=== PATIENT | female | born 1970 | race Caucasian/White ===

== ENCOUNTER → 2017-10-28 15:40 | Outpatient (CLI) | payer BC, SELFPAY ==
[2017-10-28 17:30] LABS: Absolute Lymphocyte Count 2.03 X10^3/ul (0.83-4.51); Absolute Neutrophil Count 4.6 X10^3/uL (2.0-7.7); Basophil# 0.04 X10^3/uL; Basophil% 0.5 % (0-1); Eosinophil# 0.08 X10^3/uL; Eosinophils% 1.1 % (0-5); Hematocrit 37.8 % (37-47); Hemoglobin 12.3 g/dl (12.0-15.0); Lymphocyte # 2.03 X10^3/ul (4.0); Lymphocyte % 27.5 % (19-41); Mean Corp Hgb Conc 32.5 g/gl (32-36); Mean Corpuscular Hgb 29.8 pg (27.0-32.0); Mean Corpuscular Volume 91.5 fL (81-99); Mean Platelet Vol. 10.5 fl (6.2-12.0); Monocyte# 0.59 X10^3/uL; Neutrophil # 4.63 X10^3/uL (2.7-7.7); Neutrophil % 62.8 % (47-70); Platelet Count 287 K/mm3 (150-450); RBC Distribution Width CV 13.2 % (11.6-14.6); RBC Distribution Width SD 43.9 fl (35.1-43.9); Red Blood Count 4.13 M/mm3 (4.2-5.4); White Blood Count 7.4 K/mm3 (4.4-11.0)
[2017-10-28 17:33] LABS: POSITIVE COUNT NO; POSITIVE DIFFERENTIAL NO; POSITIVE MORPHOLOGY NO
== END ==
PROVIDERS: Family Provider Family Medicine; PCP Family Medicine; Visit Provider Internal Medicine Gastroenterology
DX: R10.9 Unspecified abdominal pain (principal); K92.1 Melena
CPT/HCPCS: 36415; 85025

== ENCOUNTER → 2017-12-26 15:34 | Outpatient (CLI) | payer BC, SELFPAY ==
--- NOTE | 2017-12-26 15:35 | US_ITS ---
STUDY: ULTRASOUND OF THE FEMALE PELVIS - COMPLETE REASON FOR EXAM: Female, 47 years old. Right upper quadrant pain. TECHNIQUE: Transvaginal TECHNICAL QUALITY: Adequate. COMPARISON: None. FINDINGS: The uterus is absent consistent with previous hysterectomy. The right ovary is visualized. The right ovary measures 3.6 x 1.7 x 2.5 cm. There is a small cyst/prominent follicle in the right ovary measuring about 1.5 cm. There is no visualized right adnexal mass or complex lesion. There is normal arterial and normal venous vascularity. The left ovary is visualized. The left ovary measures 2.7 x 2 x 1.5 cm cm. There is no left ovarian cyst or ovarian mass. There is no visualized left adnexal mass or complex lesion. There is normal arterial and normal venous vascularity. There is no fluid in the cul-de-sac. US/Transvaginal Non- IMPRESSION: Status post hysterectomy. No pelvic mass is seen. Prominent follicles in the right ovary. Electronically Signed: Aleksandr Anthony MD at 2:17 EDT Tel , Service support ,
== END ==
PROVIDERS: Family Provider Family Medicine; PCP Family Medicine; Visit Provider Family Medicine
DX: R10.31 Right lower quadrant pain (principal)
CPT/HCPCS: 76830

== ENCOUNTER → 2018-06-20 16:03 | Outpatient (CLI) | payer BC, SELFPAY ==
[2018-06-20 18:04] LABS: AST(SGOT) 24 U/L (15-37); Alanine Aminotransfer ALT/SGPT 21 U/L (13-56); Cholesterol 178 mg/dL (200); High Density Lipoprotein 58 mg/dL; Triglycerides 55 mg/dL; Very Low Density Lipoprotein 11 mg/dL (5-40)
== END ==
PROVIDERS: Family Provider Family Medicine; PCP Family Medicine; Visit Provider Family Medicine
DX: E78.00 Pure hypercholesterolemia, unspecified (principal)
CPT/HCPCS: 36415; 80061; 84450; 84460

== ENCOUNTER → 2018-07-03 14:54 | Outpatient (CLI) | payer BC, SELFPAY ==
--- NOTE | 2018-07-03 14:57 | BI_ITS ---
MAMMOGRAPHY - BILATERAL SCREENING REASON FOR EXAM: Female, 47 years old. Routine annual screening examination. PERTINENT HISTORY: Non-contributory. TECHNIQUE: Digital bilateral breast patricia (3D mammographic acquisition) in the CC and MLO projections. 2-D mediolateral oblique (MLO) and craniocaudad (CC) views of both breasts were obtained. CAD: Full Field Digital Mammography with Computer Added Detection was performed. COMPARISON: Comparison is made with prior examination dated June 14, 2017 and June 08, 2016. FINDINGS: Breast Composition: The breasts are heterogeneously dense, which may obscure small masses. There are no dominant masses or suspicious calcifications. No other significant abnormalities are identified. There has been no significant change since the prior study. BI/SCREENING MAMM (CAD), BILAT IMPRESSION: Stable bilateral screening mammogram. Yearly follow-up mammogram recommended. (A) ASSESSMENT CATEGORY: BIRADS Category 1: Negative. A letter regarding these results will be sent to the patient by the facility within 30 days. Approximately 10% of breast cancers are not detected by mammography. A normal mammogram should not delay biopsy of a clinically suspicious abnormality. [id number] Electronically Signed: Odell Luz MD at 15:45 EDT Tel [phone], Service support ,
== END ==
PROVIDERS: Family Provider Family Medicine; PCP Family Medicine; Referring Provider Family Medicine; Visit Provider Family Medicine
DX: Z12.31 Encounter for screening mammogram for malignant neoplasm of breast (principal)
CPT/HCPCS: 77063; 77067

== ENCOUNTER → 2019-07-16 11:05 | Outpatient (CLI) | payer BC, SELFPAY ==
[2019-07-16 13:03] LABS: AST(SGOT) 24 U/L (15-37); Alanine Aminotransfer ALT/SGPT 21 U/L (13-56); Anion Gap 6 (5-15); BUN 10 mg/dL (7-18); Calcium,Total 8.7 mg/dL (8.5-10.1); Chloride 106 mmol/L (98-107); Cholesterol 209 mg/dL (200); Creatinine, Serum 0.62 mg/dL (0.55-1.02); EST Glomerular Filtration Rate 107 mL/min (>60); Est Glom Filt Rate - Afr Amer 130 mL/min (>60); Glucose 82 mg/dL (74-106); High Density Lipoprotein 61 mg/dL; Potassium 3.7 mmol/L (3.5-5.1); Sodium Level 138 mmol/L (136-145); Triglycerides 41 mg/dL; Very Low Density Lipoprotein 8 mg/dL (5-40)
== END ==
PROVIDERS: Family Provider Family Medicine; PCP Family Medicine; Referring Provider Family Medicine; Visit Provider Family Medicine
DX: E78.5 Hyperlipidemia, unspecified (principal)
CPT/HCPCS: 36415; 80048; 80061; 84450; 84460

== ENCOUNTER → 2019-08-01 15:06 | Outpatient (CLI) | payer BC, SELFPAY ==
--- NOTE | 2019-08-01 15:08 | BI_ITS ---
MAMMOGRAPHY - BILATERAL SCREENING 3-D TOMOSYNTHESIS REASON FOR EXAM: Female, 48 years old. PERTINENT HISTORY: No significant family history. TECHNIQUE: 2-D mammograms and 3-D Tomosynthesis of the breast (s) were performed. CAD was performed. COMPARISON: July 03, 2018 FINDINGS: The breast composition is of heterogeneous fibroglandular tissue that may obscure subtle lesions. Scattered benign calcifications are seen. No dense spiculated masses or suspicious microcalcifications are identified. No architectural distortion is identified. There is no skin thickening or nipple retraction. Benign appearing lymph nodes noted in the axillary areas bilaterally There has been no significant change since the prior stud of July 03, 2018. BI/SCREEN MAMM (CAD) W/SAKINA BILAT IMPRESSION: No mammographic signs of malignancy. Routine yearly mammograms recommended. ASSESSMENT CATEGORY: BIRADS Category 1: Negative. A letter regarding these results will be sent to the patient by the facility within 30 days. FOLLOW UP RECOMMENDATION: Yearly follow up mammogram recommended. (A) Approximately 10% of breast cancers are not detected by mammography. A normal mammogram should not delay biopsy of a clinically suspicious abnormality. Electronically Signed: Zion Heck, at 13:38 EST Tel , Service support ,
== END ==
PROVIDERS: Family Provider Family Medicine; PCP Family Medicine; Referring Provider Family Medicine; Visit Provider Family Medicine
DX: Z12.31 Encounter for screening mammogram for malignant neoplasm of breast (principal)
CPT/HCPCS: 77063; 77067

== ENCOUNTER → 2020-06-25 16:36 | Outpatient (CLI) | payer BC, SELFPAY ==
[2020-06-25 18:45] LABS: Absolute Lymphocyte Count 2.16 X10^3/uL (0.83-4.51); Absolute Neutrophil Count 2.2 X10^3/uL (2.0-7.7); Basophil# 0.05 X10^3/uL; Eosinophil# 0.07 X10^3/uL; Eosinophils% 1.4 % (0-5); Hematocrit 41.1 % (37-47); Lymphocyte # 2.16 X10^3/ul (4.0); Mean Corp Hgb Conc 31.6 g/dL (32-36); Mean Corpuscular Hgb 29.6 pg (27.0-32.0); Mean Corpuscular Volume 93.6 fL (81-99); Mean Platelet Vol. 10.5 fl (6.2-12.0); Monocyte# 0.39 X10^3/uL; Monocyte% 7.9 % (0-10); NRBC Flagged by Analyzer 0 % (0-5); Neutrophil # 2.23 X10^3/uL (2.7-7.7); Neutrophil % 45.5 % (47-70); Platelet Count 319 K/mm3 (150-450); RBC Distribution Width SD 41.8 fl (35.1-43.9); Red Blood Count 4.39 M/mm3 (4.2-5.4); White Blood Count 4.9 K/mm3 (4.4-11.0)
[2020-06-25 18:50] LABS: AST(SGOT) 25 U/L (15-37); Alanine Aminotransfer ALT/SGPT 22 U/L (13-56); Cholesterol 245 mg/dL (200); High Density Lipoprotein 64 mg/dL; Magnesium 2.5 mg/dL (1.6-2.6); Triglycerides 69 mg/dL; Very Low Density Lipoprotein 14 mg/dL (5-40)
[2020-06-30 17:04] LABS: Hemoglobin A1c 5.4 % (3.8-5.6)
== END ==
PROVIDERS: PCP Family Medicine; Referring Provider Family Medicine; Visit Provider Family Medicine
DX: E78.00 Pure hypercholesterolemia, unspecified (principal); K21.9 Gastro-esophageal reflux disease without esophagitis
CPT/HCPCS: 36415; 80061; 83036; 83735; 84450; 84460; 85025

== ENCOUNTER → 2021-01-07 15:16 | Outpatient (CLI) | payer OTHER, SELFPAY ==
--- NOTE | 2021-01-07 15:19 | BI_ITS ---
MAMMOGRAPHY - BILATERAL SCREENING REASON FOR EXAM: Female, 50 years old. Routine annual screening examination. PERTINENT HISTORY: Non-contributory. TECHNIQUE: Digital bilateral breast patricia (3D mammographic acquisition) in the CC and MLO projections. 2-D mediolateral oblique (MLO) and craniocaudad (CC) views of both breasts were obtained. CAD: Full Field Digital Mammography with Computer Added Detection was performed. COMPARISON: Comparison is made with prior examination dated 08/01/2019 and 07/03/2018. FINDINGS: Breast Composition: The breasts are extremely dense, which lowers the sensitivity of mammography. There are no dominant masses or suspicious calcifications. No other significant abnormalities are identified. There has been no significant change since the prior study. BI/SCREENING MAMM (CAD), BILAT IMPRESSION: Stable bilateral screening mammogram. Yearly follow-up mammogram recommended. (A) ASSESSMENT CATEGORY: BIRADS Category 1: Negative. A letter regarding these results will be sent to the patient by the facility within 30 days. Approximately 10% of breast cancers are not detected by mammography. A normal mammogram should not delay biopsy of a clinically suspicious abnormality. [id number] Electronically Signed: Odell Luz MD at 15:54 EDT , Service support ,
== END ==
PROVIDERS: PCP Family Medicine; Referring Provider Family Medicine; Visit Provider Family Medicine
DX: Z12.31 Encounter for screening mammogram for malignant neoplasm of breast (principal)
CPT/HCPCS: 77067

== ENCOUNTER → 2022-02-22 | Outpatient (CLI) | payer OTHER, SELFPAY ==
--- NOTE | 2022-02-22 16:09 | BI_ITS ---
MAMMOGRAPHY - BILATERAL SCREENING REASON FOR EXAM: Female, 51 years old. Routine annual screening examination. PERTINENT HISTORY: Non-contributory. TECHNIQUE: Digital bilateral breast sakina (3D mammographic acquisition) in the CC and MLO projections. 2-D mediolateral oblique (MLO) and craniocaudad (CC) views of both breasts were obtained. CAD: Full Field Digital Mammography with Computer Added Detection was performed. COMPARISON: Comparison Mammogram study is dated 01/07/2021, 08/01/2019, 07/03/2018, 06/14/2017. FINDINGS: Breast Composition: The breasts are heterogeneously dense, which may obscure small masses. There are no dominant masses or suspicious calcifications. No other significant abnormalities are identified. There has been no significant change since the prior study. BI/SCRN MAMM (CAD)W/SAKINA BILAT IMPRESSION: Stable bilateral screening mammogram. Yearly follow-up mammogram recommended. (A) ASSESSMENT CATEGORY: BIRADS Category 1: Negative. A letter regarding these results will be sent to the patient by the facility within 30 days. Approximately 10% of breast cancers are not detected by mammography. A normal mammogram should not delay biopsy of a clinically suspicious abnormality. [id number] Electronically Signed: Lambert Callahan, at 8:40 EDT ,
== END | disposition home or self-care (01) ==
LOC: OPBI 16:06
PROVIDERS: PCP Family Medicine; Referring Provider Family Medicine; Visit Provider Family Medicine
DX: Z12.31 Encounter for screening mammogram for malignant neoplasm of breast (principal)
CPT/HCPCS: 77063; 77067

== ENCOUNTER → 2022-04-02 | Outpatient (CLI) | payer OTHER, SELFPAY ==
[2022-04-02 16:44] LABS: Absolute Neutrophil Count 3.2 X10^3/uL (2.0-7.7); Basophil# 0.07 X10^3/uL; Basophil% 1.1 % (0-1); Eosinophil# 0.08 X10^3/uL; Eosinophils% 1.3 % (0-5); Hemoglobin 13.2 g/dL (12.0-15.0); Lymphocyte % 38.5 % (19-41); Mean Corp Hgb Conc 32.2 g/dL (32-36); Mean Corpuscular Hgb 29.9 pg (27.0-32.0); Mean Corpuscular Volume 92.8 fL (81-99); Mean Platelet Vol. 9.7 fl (6.2-12.0); Monocyte# 0.46 X10^3/uL; Monocyte% 7.4 % (0-10); NRBC Flagged by Analyzer 0 % (0-5); Neutrophil # 3.21 X10^3/uL (2.7-7.7); Neutrophil % 51.5 % (47-70); Platelet Count 337 K/mm3 (150-450); RBC Distribution Width CV 12.5 % (11.6-14.6); RBC Distribution Width SD 42.8 fl (35.1-43.9); Red Blood Count 4.42 M/mm3 (4.2-5.4); White Blood Count 6.2 K/mm3 (4.4-11.0)
[2022-04-02 16:56] LABS: Erythrocyte Sedimentation Rate 5 mm/hr (0-30)
[2022-04-02 17:25] LABS: ALB/GLOB Ratio 1.3 RATIO (0.9-2.4); AST(SGOT) 27 U/L (15-37); Alanine Aminotransfer ALT/SGPT 29 U/L (13-56); Albumin, Serum 4.3 g/dL (3.2-5.0); Alkaline Phosphatase 80 U/L (45-117); Anion Gap 3 (5-15); BUN 11 mg/dL (7-18); BUN/Creat Ratio 15.4 RATIO (10-20); CRP < 2.90 mg/L (0.0-3.0); Calcium,Total 9.3 mg/dL (8.5-10.1); Chloride 107 mmol/L (98-107); Creatinine, Serum 0.71 mg/dL (0.55-1.02); EST Glomerular Filtration Rate 91 mL/min (>60); Est Glom Filt Rate - Afr Amer 110 mL/min (>60); Globulin 3.4 g/dL (2.2-4.2); Glucose 92 mg/dL (74-106); Potassium 3.8 mmol/L (3.5-5.1); Protein, Total 7.7 g/dL (6.4-8.2); Sodium Level 139 mmol/L (136-145)
[2022-04-05 13:07] LABS: Anti-Centromere B Ab <0.2 AI (0.0-0.9); Anti-Chromatin <0.2 AI (0.0-0.9); Anti-Jo <0.2 AI (0.0-0.9); Anti-Scleroderma-70 AB <0.2 AI (0.0-0.9); RNP Ab 0.9 AI (0.0-0.9); SJOGREN'S Anti-SS-A test < 0.2 AI (0.0-0.9); SJOGREN'S Anti-SS-B test < 0.2 AI (0.0-0.9); Smith Ab <0.2 AI (0.0-0.9)
[2022-04-05 14:11] LABS: Anti-dsDNA Ab 1 IU/mL (0-9)
[2022-04-05 18:07] LABS: Cytoplasmic Ab (C-ANCA) <1:20 titer (Neg:<1:20); Endomysial Antibody IgA Negative (Negative); Immunoglobulin A 285 mg/dL (87-352)
[2022-04-05 21:00] LABS: Perinuclear Ab (P-ANCA) <1:20 titer (Neg:<1:20); t-Transglutaminase IgA <2 U/mL (0-3)
== END | disposition home or self-care (01) ==
LOC: LAB 16:32
PROVIDERS: PCP Family Medicine; Referring Provider Nurse Practitioner Adult Health; Visit Provider Nurse Practitioner Adult Health
DX: K31.84 Gastroparesis (principal); K59.09 Other constipation; K21.9 Gastro-esophageal reflux disease without esophagitis; E78.5 Hyperlipidemia, unspecified
CPT/HCPCS: 36415; 80053; 82784; 83516; 85025; 85652; 86140; 86225; 86235; 86255; 86256

== ENCOUNTER → 2022-04-12 | Outpatient (CLI) | payer OTHER, SELFPAY ==
--- NOTE | 2022-04-12 08:40 | US_ITS ---
STUDY: ABDOMINAL ULTRASOUND - RIGHT UPPER QUADRANT REASON FOR VISIT: Female, 51 years old eval for fatty liver, hyperlipidemia -- RUQ TECHNIQUE: Ultrasound evaluation of the right upper quadrant was performed with real-time and static griffiths-scale imaging. TECHNICAL QUALITY: Adequate. COMPARISON: 06/03/2017 FINDINGS: Liver: The liver measures 13.2 cm. There is normal echogenicity of the liver. The bile ducts are within normal limits. There is hepatic color flow. The direction of portal flow is hepatopetal. Subcentimeter cyst in the left lobe of the liver. 3.67 m cyst in the right lobe of the liver. Another 2 cm cyst in the caudate lobe of the liver. Gallbladder: Normal distended gallbladder. The gallbladder wall measures 2 mm. There is a negative sonographic Wood''s sign. There is no pericholecystic fluid. There are no gallstones. Common Bile Duct (C.B.D.): The common bile duct measures 4 mm. Pancreas: Normal size of the head, body and tail of the pancreas. There is normal echogenicity of the pancreas. There is no demonstrated pancreatic mass or cyst. Right Kidney: Normal size of the right kidney. The right kidney measures 10.1 cm. Normal renal cortex. The right cortex measures 1.5 cm. There is no demonstrated renal mass or cyst. There is no right hydronephrosis. US/Abdomen Limited IMPRESSION: Normal right upper quadrant ultrasound examination. Multiple hepatic cysts. Electronically Signed: Ian Pulido MD at 17:39 EDT ,
== END | disposition home or self-care (01) ==
PROVIDERS: PCP Family Medicine; Visit Provider Nurse Practitioner Adult Health
DX: K76.89 Other specified diseases of liver (principal); R10.11 Right upper quadrant pain; E78.5 Hyperlipidemia, unspecified
CPT/HCPCS: 76705

== ENCOUNTER 2022-06-01 12:20 | Day surgery (SDC) | payer OTHER, SELFPAY ==
[2022-06-01 12:42] VITALS: BP 119/70; PULSE 77; RESP 16; TEMP 36.8; O2SAT 100; BMI 24.0
[2022-06-01] MEDS: Lactated Ringers 1,000 ML 15 ML IV (12:50)
--- NOTE | 2022-06-01 13:30 | EGD_PTH ---
PATIENT: ARTHUR PEARL LOC: EN U#:[id number] AGE/SX: 51/F ROOM: RE06/01/[address]: Dr. Tree Saldivar DO : 1970 BED: DIS: 06/01/2022 SPEC #: [id number] RECD: 06/01/22 15:39 STATUS: ROSANNE RETai #: [id number] VICENTE: 06/01/22 13:[address]: Tree Saldivar DEPT: SURGICAL PATHOLOGY RECD BY: Dotty Cruz ENTERED: 06/02/22 08:05 SP TYPE: EGD BIOPSY MEENAKSHI DR: Dr. Chloe Thomas MD Tissues: A - Esophagus, NOS B - Duodenum, NOS Procedures: Special Stain Group II Surgery Specimen Level IV Alcian Blue/PAS (control) HEADER OPERATION: EGD with biopsies ([facility] [place] PRE-OP DIAGNOSIS: Gastroparesis, GERD TISSUE SUBMITTED: A ? Distal esophagus biopsy, B ? Duodenum biopsy MICROSCOPIC DIAGNOSIS A. Distal esophagus, biopsy: Fragments of gastroesophageal mucosa with chronic inflammation. Intestinal metaplasia (goblet cell metaplasia) not identified. See comment. B. Duodenum, biopsy: Fragments of duodenal mucosa with mild Keyona gland hyperplasia. BILLY:irina 06/03/2022 COMMENT A. Alcian blue/PAS stain with matched control is used in the evaluation of the specimen. MICROSCOPIC DESCRIPTION Slides are reviewed. GROSS DESCRIPTION A - Received in fixative is one container labeled with the patient's name and designated distal esophagus biopsy. The specimen consists of multiple irregular fragments of light blackmon soft tissue that in aggregate measure 1.5 x 0.5 x 0.1 cm. The specimen is totally submitted in one cassette. B - Received in fixative is one container labeled with the patient's name and designated duodenum biopsy. The specimen consists of two irregular fragments of light blackmon soft tissue that in aggregate measure 0.6 x 0.3 x 0.1 cm. The specimen is totally submitted in one cassette. / BILLY:irina 06/02/2022 TC:3 CPT: 55236 x2, 91006
--- NOTE | 2022-06-01 13:35 | HP.PCM_ITS ---
History and Physical Date of Admission: 06/01/22 ARTHUR PEARL, is a 51 F who presents to the office today to transfer care for GERD, gastroparesis, chronic constipation.? Her mother is a patient in our practice. Patient has a very long history of chronic constipation.? She can easily go 4 days between bowel movements.? She uses MiraLAX as needed.? She takes plexus products which are questionable if they help with her bowels.? She has tried a probiotic without much improvement.? She does frequently have bloating, lots of gas and burping.? She gets pain in the lower abdomen related to the constipation.? Stool can be hard and can be difficult to pass.? She does not get diarrhea.? No melena or hematochezia.? No relief of constipation with fiber supplement.? Hasn't tried docusate stool softener, senna, Fleets, dulcolax. Denies nausea, vomiting, dysphagia. Has heartburn, not currently taking anything.? Has previously taken PPI therapy.? Trying to manage by watching her diet, but that's not effective enough. She wants to avoids meds whenever possible.? She was diagnosed with gastroparesis in about 2016 with a gastric emptying study.? She was treated with erythromycin which did help but she did still have constipation.? She gets full very quickly and feels bloated.? She has a small hiatal hernia per EGD report. 11/10/2017 colonoscopy to the cecum, this was performed because of rectal bleeding, no abnormalities found, report will be scanned into her chart 08/17/2017 gastric emptying study: Delayed gastric emptying 85 minutes 07/12/2017 EGD: Small sliding hiatal hernia, erythema in the stomach, biopsy for H. pylori was negative, biopsy positive for mild gastritis Her father has a history of colon polyps, her mother has a history of colitis. Her only medication is atorvastatin for hyperlipidemia.? No past surgical history. ? ROS Const Constitutional: No fatigue ENT ENT: No difficulty swallowing Gastro GI: Positive for abdominal pain, bloating, change in bowel habits, constipation, heartburn, excessive flatus and Blood in stool; No belching, change in stool character, coffee ground emesis, cramping, diarrhea, difficulty swallowing, feeling full early, incontinent of stools, Vomiting blood/hematemesis, loose stools, Black,tarry stools, nausea/dyspepsia, pain with swallowing, vomiting or other Musc Musculoskeletal: Positive for Arthritis; No joint pain Skin Skin: No yellowing of the eye or itchy eyes Psych Psychiatric: No anxiety and No depression Endo Endocrine: No fatigue Aller/Imm Allergy/Immunologic: No itchy eyes Joshua/Lymp Hematologic/Lymphatic: No easy bleeding or easy bruising Exam Const General: cooperative, healthy appearing and comfortable Nutritional Appearance: average body habitus Eyes General: appearance normal, both eyes and all related structures Resp Effort & Inspection: normal respiratory effort GI Inspection: normal to inspection Quality Reporting Tobacco Screening ([facility] 138) Smoking Status: Never smoker Assessment and Plan Assessment and Plan (1) Hyperlipidemia: ?Status:?Acute ?Plan: Liver US to eval for fatty liver, if she has a fatty liver then we will proceed with biochemical evaluation and liver elastography (2) Gastroparesis: ?Status:?Acute ?Plan: We will start by treating her constipation and hope to see improved movement from the stomach but we may need to consider other treatment (3) Chronic constipation: ?Status:?Chronic ?Plan: Try combo miralax in juice plus mineral oil 1 tsp nightly Consider Linzess to treat the constipation and that should also help with gastroparesis as well as her acid reflux.? She prefers to avoid medications so we will work on minimizing them.? However she does have a hiatal hernia, we discussed exactly what that means.? We will schedule her for EGD in order to evaluate her for Bragg's esophagus. f/u 6-8 wks (4) GERD (gastroesophageal reflux disease): ?Status:?Acute ?Plan: Schedule EGD to eval for Bragg's ? ? ? Orders: Orders Abdomen Complete Today E78.5 - Hyperlipidemia, unspecified, K31.84 - Gastroparesis, K59.09 - Other constipation ? CRP Today E78.5 - Hyperlipidemia, unspecified, K21.9 - Gastro-esophageal reflux disease without esophagitis, K31.84 - Gastroparesis, K59.09 - Other constipation ? Comprehensive Metabolic Profil Today E78.5 - Hyperlipidemia, unspecified, K21.9 - Gastro-esophageal reflux disease without esophagitis, K31.84 - Gastroparesis, K59.09 - Other constipation ? CBC W/Diff, Automated Today E78.5 - Hyperlipidemia, unspecified, K21.9 - Gastro- esophageal reflux disease without esophagitis, K31.84 - Gastroparesis, K59.09 - Other constipation ? Erythrocyte Sed Rate Today E78.5 - Hyperlipidemia, unspecified, K21.9 - Gastro- esophageal reflux disease without esophagitis, K31.84 - Gastroparesis, K59.09 - Other constipation ? URSZULA Comprehensive Panel Today E78.5 - Hyperlipidemia, unspecified, K21.9 - Gastro-esophageal reflux disease without esophagitis, K31.84 - Gastroparesis, K59.09 - Other constipation ? ANCA Today E78.5 - Hyperlipidemia, unspecified, K21.9 - Gastro-esophageal reflux disease without esophagitis, K31.84 - Gastroparesis, K59.09 - Other constipation ? Celiac Disease Profile Today E78.5 - Hyperlipidemia, unspecified, K21.9 - Gastro-esophageal reflux disease without esophagitis, K31.84 - Gastroparesis, K59.09 - Other constipation ? I have re-examined the patient. There are no clinical changes since date of exam.
[2022-06-01 13:55] VITALS: BP 119/70; BP 96/69; PULSE 73; RESP 14; TEMP 36.6; O2SAT 100
--- NOTE | 2022-06-01 13:55 | OP.CCLET_ITS ---
06/01/2022 Chloe Thomas [address] [place] [address] Re : Upper GI endoscopy procedure for Nataly Brunner Dear Dr. Thomas This procedure was performed on Wednesday, June 01, 2022. My impressions and recommendations are as follows: Impressions : - LA Grade C reflux esophagitis. Biopsied. - Small hiatal hernia. - The examination was otherwise normal. - Duodenitis. Biopsied. Recommendations : - Discharge patient to home. - Resume previous diet. - Continue present medications. - Follow an antireflux regimen daily. - Use Protonix (pantoprazole) 40 mg PO BID for 8 weeks. My findings are described in the full procedure note, which is enclosed. If I can be of further assistance, please feel free to contact me at . Sincerely, Tree Saldivar, 06/01/2022 1:54:29 PM This report has been signed electronically.
--- NOTE | 2022-06-01 13:55 | OP.EGD_ITS ---
Patient Name: Nataly Brunner Procedure Date: 06/01/2022 1:33 PM Date of : 1970 Age: 51 Procedure: Upper GI endoscopy Indications: Heartburn Providers: Tree Saldivar DO Medicines: Monitored Anesthesia Care Patient Profile: This is a 51 year old female. Refer to note in patient chart for documentation of history and physical. Patient has symptoms of chronic dyspepsia. Complications: No immediate complications. Procedure: Pre-Anesthesia Assessment: - Prior to the procedure, a History and Physical was performed, and patient medications and allergies were reviewed. The risks and benefits of the procedure and the sedation options and risks were discussed with the patient. All questions were answered and informed consent was obtained. Patient identification and proposed procedure were verified by the physician in the pre-procedure area. Mental Status Examination: alert and oriented. Airway Examination: normal oropharyngeal airway and neck mobility. Respiratory Examination: clear to auscultation. CV Examination: normal. Prophylactic Antibiotics: The patient does not require prophylactic antibiotics. Prior Anticoagulants: The patient has taken no previous anticoagulant or antiplatelet agents. ASA Grade Assessment: II - A patient with mild systemic disease. After reviewing the risks and benefits, the patient was deemed in satisfactory condition to undergo the procedure. The anesthesia plan was to use monitored anesthesia care (MAC). Immediately prior to administration of medications, the patient was re-assessed for adequacy to receive sedatives. The heart rate, respiratory rate, oxygen saturations, blood pressure, adequacy of pulmonary ventilation, and response to care were monitored throughout the procedure. The physical status of the patient was re-assessed after the procedure. After obtaining informed consent, the endoscope was passed under direct vision. Throughout the procedure, the patient's blood pressure, pulse, and oxygen saturations were monitored continuously. The Endoscope was introduced through the mouth, and advanced to the second part of duodenum. The upper GI endoscopy was accomplished without difficulty. The patient tolerated the procedure well. Scope In: 1:43:02 PM Scope Out: 1:48:12 PM Total Procedure Duration Time 0 hours 5 minutes 10 seconds Findings: LA Grade C (one or more mucosal breaks continuous between tops of 2 or more mucosal folds, less than 75% circumference) esophagitis with bleeding was found 35 to 38 cm from the incisors. Biopsies were taken with a cold forceps for histology. Verification of patient identification for the specimen was done. Estimated blood loss was minimal. A small hiatal hernia was present. The exam was otherwise without abnormality. Patchy inflammation characterized by congestion (edema) was found in the first portion of the duodenum. Biopsies for histology were taken with a cold forceps for evaluation of celiac disease. Verification of patient identification for the specimen was done. Estimated blood loss was minimal. Impression: - LA Grade C reflux esophagitis. Biopsied. - Small hiatal hernia. - The examination was otherwise normal. - Duodenitis. Biopsied. Recommendation: - Discharge patient to home. - Resume previous diet. - Continue present medications. - Follow an antireflux regimen daily. - Use Protonix (pantoprazole) 40 mg PO BID for 8 weeks. Procedure Code(s): --- Professional --- 45597, Esophagogastroduodenoscopy, flexible, transoral; with biopsy, single or multiple CPT copyright 2017 [employer]. All rights reserved. The codes documented in this report are preliminary and upon guidance secretary review may be revised to meet current compliance requirements. Tree Saldivar DO 06/01/2022 1:54:29 PM This report has been signed electronically. Number of Addenda: 0 Note Initiated On: 06/01/2022 1:33 PM
[2022-06-01 14:00] VITALS: BP 106/70; BP 119/70; PULSE 71; RESP 14; O2SAT 100
[2022-06-01 14:05] VITALS: BP 105/66; BP 119/70; PULSE 66; RESP 14; O2SAT 100
[2022-06-01 14:10] VITALS: BP 110/71; BP 119/70; PULSE 67; RESP 14; TEMP 36.6; O2SAT 100
[2022-06-01 14:28] VITALS: BP 119/70
== END 2022-06-01 14:48 | disposition home or self-care (01) ==
LOC: EN 12:21 → AC 12:23
PROVIDERS: PCP Family Medicine; Referring Provider Family Medicine; Visit Provider Internal Medicine Gastroenterology
PROC: 0DJ08ZZ Inspection of Upper Intestinal Tract, Via Natural or Artificial Opening Endoscopic (ICD-10-PCS; CPT 43235; principal; 2022-06-01 13:25)
DX: K44.9 Diaphragmatic hernia without obstruction or gangrene (principal); K29.80 Duodenitis without bleeding; K31.84 Gastroparesis; K21.00 Gastro-esophageal reflux disease with esophagitis, without bleeding; K59.09 Other constipation; E78.5 Hyperlipidemia, unspecified
CPT/HCPCS: 43239; 88305; 88313; J7120; J2405

== ENCOUNTER → 2022-06-04 | Outpatient (CLI) | payer OTHER, SELFPAY ==
--- NOTE | 2022-06-04 16:40 | RAD_ITS ---
STUDY: X-RAY - RIGHT HAND, ATTENTION FINGER REASON FOR EXAM: Female, 51 years old. FINGER PAIN TECHNIQUE: 3 view(s) of the finger were obtained. COMPARISON: None. FINDINGS: Normal metacarpal head. Normal metacarpophalangeal joint. Normal proximal phalanx. Normal middle phalanx. Normal distal phalanx. Normal proximal interphalangeal joint. Normal distal interphalangeal joint. RAD/Finger(s) Min 2 Views IMPRESSION: Normal x-ray examination of the finger. Electronically Signed: Clint Tompkins MD at 2:10 EDT ,
== END | disposition home or self-care (01) ==
LOC: MTRAD 16:36
PROVIDERS: PCP Family Medicine; Referring Provider Family Medicine; Visit Provider Family Medicine
DX: M79.644 Pain in right finger(s) (principal)
CPT/HCPCS: 73140

== ENCOUNTER → 2022-07-16 | Outpatient (CLI) | payer OTHER, SELFPAY ==
--- NOTE | 2022-07-16 15:34 | MRI_ITS ---
EXAM: MR RIGHT UPPER EXTREMITY WITHOUT INTRAVENOUS CONTRAST, HAND CLINICAL INDICATION: PAIN IN HAND, LUMP MARKED WITH BEAD MARKER TECHNIQUE: Multiplanar and multisequence MR images of the right hand without intravenous contrast. This report was created using [employer] technology. COMPARISON: None. FINDINGS: LIGAMENTS: MEDIAL COLLATERAL: Unremarkable. Intact. LATERAL COLLATERAL: Unremarkable. Intact. RADIAL COLLATERAL: Unremarkable. Intact. ULNAR COLLATERAL: Unremarkable. Intact. TENDONS: FLEXOR: Small cyst measuring 4 x 8 x 4 mm anterior and along the ulnar aspect of the proximal flexor tendon of the third finger at the level of the A2 suzanne (approximately mid proximal phalanx). It is characterized by high signal on T2 and intermediate signal on T1-weighted images. EXTENSOR: Unremarkable. Intact. MUSCLES: Unremarkable. No edema or myositis. FLUID: Unremarkable. No joint effusion. BONES/JOINTS: Unremarkable. Normal alignment. No fracture. No bone marrow edema. No joint effusion. OTHER SOFT TISSUES: Unremarkable. MRI/Upper Ext/No Jt/ wo IMPRESSION: Flexor tendon sheath ganglion cyst measuring 4 x 8 x 4 mm involving the third finger flexor tendon sheath at the A2 suzanne level (mid proximal phalanx). Electronically Signed: Des Hong MD at 4:40 EST ,
== END | disposition home or self-care (01) ==
LOC: MRI 15:25
PROVIDERS: PCP Family Medicine; Visit Provider Orthopaedic Surgery
DX: M79.641 Pain in right hand (principal)
CPT/HCPCS: 73218

== ENCOUNTER → 2022-11-08 | Outpatient (CLI) | payer OTHER, SELFPAY ==
--- NOTE | 2022-11-08 12:37 | NM_ITS ---
CLINICAL: 51-year-old female with history of early satiety. SEMI-SOLID PHASE 99m Tc SULFUR COLLOID GASTRIC EMPTYING STUDY COMPARISON: Previous semisolid phase gastric emptying examination dated 08/17/2017 FINDINGS: The patient was administered 1.0 mCi of 99m Tc sulfur colloid mixed with oatmeal and consumed per os. Image acquisitions in the anterior-posterior projections were obtained for 60 minutes. There is prompt visualization of the stomach. There is no gastroesophageal reflux identified. First order kinetics are maintained throughout the duration of the acquisitions. The T ? linear fit was calculated to be > 350 minutes, (Normal: 12-56 minutes). NM/Gastric Emptying Study IMPRESSION: 1. ABNORMAL 99m Tc sulfur colloid semi-solid phase (oatmeal) gastric emptying imaging examination. A. There is delayed semi-solid phase gastric emptying compared to normal controls with maintained first order kinetics throughout all components of the examination. (Kd delcid al, J Nucl Med Tech 38: 186, 2010). Electronically Signed: Ian Gill, at 21:04 EST ,
== END | disposition home or self-care (01) ==
LOC: NM 12:35
PROVIDERS: PCP Family Medicine; Referring Provider Nurse Practitioner Adult Health; Visit Provider Nurse Practitioner Adult Health
DX: K31.84 Gastroparesis (principal)
CPT/HCPCS: 78264; A9541

== ENCOUNTER 2023-02-03 08:46 | Day surgery (SDC) | payer OTHER, SELFPAY ==
[2023-02-03] MEDS: Lactated Ringers 1,000 ML 15 ML IV (09:00)
[2023-02-03 09:15] VITALS: BP 114/77; PULSE 78; RESP 16; TEMP 37.2; O2SAT 99; BMI 25.2
--- NOTE | 2023-02-03 09:29 | HP.PCM_ITS ---
History and Physical Date of Admission: 02/03/23 51 F who presents to the office today for f/u gastroparesis. Acid reflux is exacerbated by gastroparesis. Also has chronic constipation. Gastroparesis was diagnosed in 2016, gastric emptying study then was 85 minutes. 11/2022 gastric emptying time was >350 minutes. Some benefit from metamucil for constipation. Just recently started aloe vera and kiwi pills, some improvement. GERD -- EGD in 05/2022 showed LA Grade C esophagitis, negative Bragg's. She remains on pantoprazole 40 mg QAM. Still having intermittent acid reflux. Gastroparesis -- gets full quickly, gets bloated. Rare nausea, no vomiting. Previously treated with erythromycin, ?some relief. Never on metoclopramide. Gastric emptying study in 2017=85 min. 11/2022 gastric emptying study>350 minutes. Chronic constipation -- Linzess caused stomach upset. She can easily go 4 days between bowel movements w/o treatment.?She has tried a probiotic without much improvement.? She does frequently have bloating, lots of gas and burping.? She gets pain in the lower abdomen related to the constipation.? Stool can be hard and can be difficult to pass.? She does not get diarrhea.? No melena or hematochezia. 11/10/2017 colonoscopy to the cecum, this was performed because of rectal bleeding, no abnormalities found ROS Const Constitutional: No fatigue ENT ENT: No difficulty swallowing Gastro GI: Positive for bloating, constipation and excessive flatus; No abdominal pain, belching, change in bowel habits, change in stool character, coffee ground emesis, cramping, diarrhea, heartburn, difficulty swallowing, feeling full early, incontinent of stools, Vomiting blood/hematemesis, Blood in stool, loose stools, Black,tarry stools, nausea/dyspepsia, pain with swallowing, vomiting or other Musc Musculoskeletal: Positive for Arthritis; No joint pain Skin Skin: No yellowing of the eye or itchy eyes Psych Psychiatric: No anxiety and No depression Endo Endocrine: No fatigue Aller/Imm Allergy/Immunologic: No itchy eyes Joshua/Lymp Hematologic/Lymphatic: No easy bleeding or easy bruising Exam Const General: cooperative, healthy appearing and comfortable Orientation: alert, awake and oriented x3 Quality Reporting Tobacco Screening ([facility]) Smoking Status: Never smoker Assessment and Plan Assessment and Plan (1) Gastroparesis: ?Status:?Chronic ?Plan: ?autoimmune. Discussed treatment options including metoclopramide, botulinum, referral to [facility]. She would like to try botulinum. EGD for botulinum toxin treatment for gastroparesis And colonoscopy for rectal bleeding (2) Rectal bleeding: ?Status:?Acute ?Plan: Intermittent small amt red blood per rectum. Will update colonoscopy. I have examined the patient and the H&P has been reviewed. There are no clinical changes since date of exam.
[2023-02-03] MEDS: Botulinum Toxin A 100 Units Vial IJ (10:28)
[2023-02-03] MEDS: 0.9% Saline Lock 10 ML Syringe IV (10:28)
[2023-02-03 10:45] VITALS: BP 100/68; BP 114/77; PULSE 74; RESP 5; TEMP 36.2; O2SAT 98
--- NOTE | 2023-02-03 10:47 | OP.EGD_ITS ---
Patient Name: Nataly Brunner Procedure Date: 02/03/2023 10:06 AM Date of : 1970 Age: 52 Procedure: Upper GI endoscopy Indications: Functional Dyspepsia, Abnormal abdominal x-ray of the GI tract, Abnormal UGI series Providers: Tree Saldivar DO Medicines: Monitored Anesthesia Care Patient Profile: This is a 52 year old female. Refer to note in patient chart for documentation of history and physical. Patient has symptoms of chronic abdominal cramping, chronic epigastric abdominal pain and chronic dyspepsia. Complications: No immediate complications. Procedure: Pre-Anesthesia Assessment: - Prior to the procedure, a History and Physical was performed, and patient medications and allergies were reviewed. The patient is competent. The risks and benefits of the procedure and the sedation options and risks were discussed with the patient. All questions were answered and informed consent was obtained. Patient identification and proposed procedure were verified by the physician in the pre-procedure area. Mental Status Examination: alert and oriented. Airway Examination: normal oropharyngeal airway and neck mobility. Respiratory Examination: clear to auscultation. CV Examination: normal. Prophylactic Antibiotics: The patient does not require prophylactic antibiotics. Prior Anticoagulants: The patient has taken no previous anticoagulant or antiplatelet agents. ASA Grade Assessment: II - A patient with mild systemic disease. After reviewing the risks and benefits, the patient was deemed in satisfactory condition to undergo the procedure. The anesthesia plan was to use moderate sedation / analgesia (conscious sedation). Immediately prior to administration of medications, the patient was re-assessed for adequacy to receive sedatives. The heart rate, respiratory rate, oxygen saturations, blood pressure, adequacy of pulmonary ventilation, and response to care were monitored throughout the procedure. The physical status of the patient was re-assessed after the procedure. After obtaining informed consent, the endoscope was passed under direct vision. Throughout the procedure, the patient's blood pressure, pulse, and oxygen saturations were monitored continuously. The pediatric colonoscope was introduced through the mouth, and advanced to the second part of duodenum. The upper GI endoscopy was accomplished without difficulty. The patient tolerated the procedure well. Scope In: 10:18:14 AM Scope Out: 10:25:50 AM Total Procedure Duration Time 0 hours 7 minutes 36 seconds Findings: The examined esophagus was normal. No gross lesions were noted in the entire examined stomach. Area was successfully injected with 100 units botulinum toxin. The second portion of the duodenum was normal. Impression: - Normal esophagus. - No gross lesions in the stomach. Injected with botulinum toxin. - Normal second portion of the duodenum. - No specimens collected. Recommendation: - Discharge patient to home. - Resume previous diet. - Continue present medications. Procedure Code(s): --- Professional --- 35553, Esophagogastroduodenoscopy, flexible, transoral; with directed submucosal injection(s), any substance CPT copyright 2017 [employer]. All rights reserved. The codes documented in this report are preliminary and upon winding machine operator review may be revised to meet current compliance requirements. Tree Saldivar DO 02/03/2023 10:47:29 AM This report has been signed electronically. Number of Addenda: 0 Note Initiated On: 02/03/2023 10:06 AM
--- NOTE | 2023-02-03 10:48 | OP.CCLET_ITS ---
02/03/2023 Chloe Thomas [address] [place] [address] Re : Upper GI endoscopy procedure for Nataly Brunner Dear Dr. Thomas This procedure was performed on February. My impressions and recommendations are as follows: Impressions : - Normal esophagus. - No gross lesions in the stomach. Injected with botulinum toxin. - Normal second portion of the duodenum. - No specimens collected. Recommendations : - Discharge patient to home. - Resume previous diet. - Continue present medications. My findings are described in the full procedure note, which is enclosed. If I can be of further assistance, please feel free to contact me at . Sincerely, Tree Saldivar, 02/03/2023 10:47:29 AM This report has been signed electronically.
[2023-02-03 10:50] VITALS: BP 101/69; BP 114/77; PULSE 68; RESP 18; O2SAT 100
--- NOTE | 2023-02-03 10:52 | OP.COLON_ITS ---
Patient Name: Nataly Brunner Procedure Date: 02/03/2023 10:25 AM Date of : 1970 Age: 52 Procedure: Colonoscopy Indications: Screening for colorectal malignant neoplasm Providers: Tree Saldivar DO Medicines: Monitored Anesthesia Care Patient Profile: This is a 52 year old female. Refer to note in patient chart for documentation of history and physical. Patient has symptoms of chronic abdominal cramping, chronic epigastric abdominal pain and chronic dyspepsia. Last Colonoscopy: date unknown. Unable to locate last colonoscopy report. Complications: No immediate complications. Procedure: Pre-Anesthesia Assessment: - Prior to the procedure, a History and Physical was performed, and patient medications and allergies were reviewed. The patient is competent. The risks and benefits of the procedure and the sedation options and risks were discussed with the patient. All questions were answered and informed consent was obtained. Patient identification and proposed procedure were verified by the physician in the pre-procedure area. Mental Status Examination: alert and oriented. Airway Examination: normal oropharyngeal airway and neck mobility. Respiratory Examination: clear to auscultation. CV Examination: normal. Prophylactic Antibiotics: The patient does not require prophylactic antibiotics. Prior Anticoagulants: The patient has taken no previous anticoagulant or antiplatelet agents. ASA Grade Assessment: II - A patient with mild systemic disease. After reviewing the risks and benefits, the patient was deemed in satisfactory condition to undergo the procedure. The anesthesia plan was to use moderate sedation / analgesia (conscious sedation). Immediately prior to administration of medications, the patient was re-assessed for adequacy to receive sedatives. The heart rate, respiratory rate, oxygen saturations, blood pressure, adequacy of pulmonary ventilation, and response to care were monitored throughout the procedure. The physical status of the patient was re-assessed after the procedure. After I obtained informed consent, the scope was passed under direct vision. Throughout the procedure, the patient's blood pressure, pulse, and oxygen saturations were monitored continuously. The colonoscope was introduced through the anus and advanced to the cecum, identified by appendiceal orifice and ileocecal valve. The colonoscopy was performed without difficulty. The patient tolerated the procedure well. The quality of the bowel preparation was adequate. Scope In: 10:27:32 AM Scope Withdrawal Time 0 hours 6 minutes 5 seconds Scope Out: 10:40:58 AM Total Procedure Duration Time 0 hours 13 minutes 26 seconds Findings: The perianal and digital rectal examinations were normal. The exam was otherwise without abnormality on direct and retroflexion views. Impression: - The examination was otherwise normal on direct and retroflexion views. - No specimens collected. Recommendation: - Discharge patient to home. - Resume previous diet. - Continue present medications. - Await pathology results. - Repeat colonoscopy in 10 years for screening purposes. Procedure Code(s): --- Professional --- G0121, Colorectal cancer screening; colonoscopy on individual not meeting criteria for high risk CPT copyright 2017 [employer]. All rights reserved. The codes documented in this report are preliminary and upon utilization review nurse review may be revised to meet current compliance requirements. Tree Saldivar DO 02/03/2023 10:52:29 AM This report has been signed electronically. Number of Addenda: 0 Note Initiated On: 02/03/2023 10:25 AM
--- NOTE | 2023-02-03 10:53 | OP.CCLET_ITS ---
02/03/2023 [address] Thomas [address] [place] [address] Re : Colonoscopy procedure for Nataly Brunner Dear Dr. Thomas This procedure was performed on February. My impressions and recommendations are as follows: Impressions : - The examination was otherwise normal on direct and retroflexion views. - No specimens collected. Recommendations : - Discharge patient to home. - Resume previous diet. - Continue present medications. - Await pathology results. - Repeat colonoscopy in 10 years for screening purposes. My findings are described in the full procedure note, which is enclosed. If I can be of further assistance, please feel free to contact me at . Sincerely, Tree Saldivar, 02/03/2023 10:52:29 AM This report has been signed electronically.
[2023-02-03 10:55] VITALS: BP 108/68; BP 114/77; PULSE 66; RESP 18; O2SAT 100
[2023-02-03 11:00] VITALS: BP 103/68; BP 114/77; PULSE 72; RESP 18; O2SAT 98
[2023-02-03 11:05] VITALS: BP 110/83; BP 114/77; PULSE 67; RESP 18; TEMP 36.2; O2SAT 98
== END 2023-02-03 11:46 | disposition home or self-care (01) ==
LOC: EN 08:47 → AC 08:48
PROVIDERS: PCP Family Medicine; Referring Provider Family Medicine; Visit Provider Internal Medicine Gastroenterology
PROC: 0DJD8ZZ Inspection of Lower Intestinal Tract, Via Natural or Artificial Opening Endoscopic (ICD-10-PCS; CPT 45378; principal; 2023-02-03 09:55)
DX: Z12.11 Encounter for screening for malignant neoplasm of colon (principal); K62.5 Hemorrhage of anus and rectum; K30 Functional dyspepsia; K31.84 Gastroparesis
CPT/HCPCS: 45378; 43236; J7120; A4216; J0585; J2405; J3490

== ENCOUNTER → 2023-03-18 | Outpatient (CLI) | payer OTHER, SELFPAY ==
--- NOTE | 2023-03-18 12:47 | NM_ITS ---
CLINICAL: 52-year-old female with history of clinical gastroparesis. SEMI-SOLID PHASE 99m Tc SULFUR COLLOID GASTRIC EMPTYING STUDY COMPARISON: Previous semisolid phase gastric emptying study dated 11/08/2022 FINDINGS: The patient was administered 1.0 mCi of 99m Tc sulfur colloid mixed with oatmeal and consumed per os. Image acquisitions in the anterior-posterior projections were obtained for 60 minutes. There is prompt visualization of the stomach. There is no gastroesophageal reflux identified. The T ? raw data emptying was calculated to be 49.51 minutes compared to > 350 minutes defined on the prior examination dated 11/08/2022, (Normal: 12-56 minutes). NM/Gastric Emptying Study IMPRESSION: 1. NORMAL 99m Tc sulfur colloid semi-solid phase (oatmeal) gastric emptying imaging examination. A. There is normal and preserved semi-solid phase gastric emptying compared to normal controls with maintained first order kinetics throughout all components of the examination. (Kd et al, J Nucl Med Tech 38: 186, 2010). B. Overall compared to the examination dated 11/08/2022, there is current normal semisolid phase gastric emptying as defined above. Electronically Signed: Ian Gill, at 8:03 EDT ,
== END | disposition home or self-care (01) ==
LOC: NM 12:47
PROVIDERS: PCP Family Medicine; Referring Provider Nurse Practitioner Adult Health; Visit Provider Nurse Practitioner Adult Health
DX: K31.84 Gastroparesis (principal)
CPT/HCPCS: 78264; A9541

== ENCOUNTER 2023-04-26 16:46 | Outpatient (CLI) | payer OTHER, SELFPAY ==
[2023-04-26 18:18] LABS: AST(SGOT) 26 U/L (15-37); Alanine Aminotransfer ALT/SGPT 25 U/L (13-56); Cholesterol 233 mg/dL (200); High Density Lipoprotein 68 mg/dL; Magnesium 2.4 mg/dL (1.6-2.6); Triglycerides 87 mg/dL; Very Low Density Lipoprotein 17 mg/dL (5-40)
== END 2023-04-26 23:59 | disposition home or self-care (01) ==
LOC: MFPLAB 16:47
PROVIDERS: PCP Family Medicine; Visit Provider Family Medicine
DX: K21.9 Gastro-esophageal reflux disease without esophagitis (principal); E78.00 Pure hypercholesterolemia, unspecified
CPT/HCPCS: 36415; 80061; 83735; 84450; 84460

== ENCOUNTER → 2023-05-16 | Outpatient (CLI) | payer OTHER, SELFPAY ==
--- NOTE | 2023-05-16 15:25 | BI_ITS ---
MAMMOGRAPHY - BILATERAL SCREENING REASON FOR EXAM: Female, 52 years old. Routine annual screening examination. PERTINENT HISTORY: Non-contributory. TECHNIQUE: Digital bilateral breast sakina (3D mammographic acquisition) in the CC and MLO projections. 2-D mediolateral oblique (MLO) and craniocaudad (CC) views of both breasts were obtained. CAD: Full Field Digital Mammography with Computer Added Detection was performed. COMPARISON: Comparison is made with prior study dated February 22, 2022 and January 07, 2021. FINDINGS: Breast Composition: The breasts are heterogeneously dense, which may obscure small masses. There are no dominant masses or suspicious calcifications. Stable benign-appearing bilateral axillary lymph nodes. No other significant abnormalities are identified. There has been no significant change since the prior study. BI/SCRN MAMM (CAD)W/SAKINA BILAT IMPRESSION: Stable bilateral screening mammogram. Yearly follow-up mammogram recommended. (A) ASSESSMENT CATEGORY: BIRADS Category 2: Benign. A letter regarding these results will be sent to the patient by the facility within 30 days. Approximately 10% of breast cancers are not detected by mammography. A normal mammogram should not delay biopsy of a clinically suspicious abnormality. [id number] Electronically Signed: Odell Luz MD at 8:41 EDT ,
== END | disposition home or self-care (01) ==
PROVIDERS: PCP Family Medicine; Referring Provider Family Medicine; Visit Provider Family Medicine
DX: Z12.31 Encounter for screening mammogram for malignant neoplasm of breast (principal)
CPT/HCPCS: 77063; 77067

== ENCOUNTER → 2023-06-14 | Outpatient (CLI) | payer OTHER, SELFPAY ==
--- NOTE | 2023-06-14 17:01 | RAD_ITS ---
STUDY: X-RAY - LEFT FOOT CLINICAL: Female, 52 years old. lateral foot pain TECHNIQUE: 3 view(s) of the foot. COMPARISON: None. FINDINGS: Normal talus, calcaneus, and tarsal bones. Normal visualized subtalar, talonavicular, calcaneocuboid, tarsal and tarsometatarsal articulations. Normal metatarsi. Normal metatarsophalangeal joint of the great toe. Normal tibial and fibular sesamoid bones. Normal interphalangeal joint of the great toe. Normal phalanges of the great toe. Normal second through fifth metatarsophalangeal joints. Normal interphalangeal joints and phalanges of the lesser toes. The soft tissue structures are unremarkable. There is no demonstrated fracture. RAD/Foot min 3 Views IMPRESSION: Unremarkable x-ray examination of the foot with no acute fracture or subluxation. Electronically Signed: Kelly Mckinney MD at 19:46 EDT ,
== END | disposition home or self-care (01) ==
LOC: MTRAD 17:01
PROVIDERS: PCP Family Medicine; Referring Provider Family Medicine; Visit Provider Family Medicine
DX: M79.672 Pain in left foot (principal)
CPT/HCPCS: 73630

== ENCOUNTER → 2023-11-28 | Outpatient (CLI) | payer OTHER, SELFPAY ==
[2023-11-28 17:39] LABS: Absolute Lymphocyte Count 2.09 X10^3/uL (0.83-4.51); Absolute Neutrophil Count 2.9 X10^3/uL (2.0-7.7); Basophil# 0.05 X10^3/uL; Basophil% 0.9 % (0-1); Eosinophils% 1.8 % (0-5); Hematocrit 41.3 % (37-47); Hemoglobin 13.4 g/dL (12.0-15.0); Lymphocyte # 2.09 X10^3/ul (0.83-4.51); Lymphocyte % 37.5 % (19-41); Mean Corp Hgb Conc 32.4 g/dL (32-36); Mean Corpuscular Hgb 29.5 pg (27.0-32.0); Mean Platelet Vol. 9.9 fl (6.2-12.0); Monocyte# 0.38 X10^3/uL; Monocyte% 6.8 % (0-10); NRBC Flagged by Analyzer 0 % (0-5); Neutrophil # 2.94 X10^3/uL (2.7-7.7); Neutrophil % 52.8 % (47-70); Platelet Count 392 K/mm3 (150-450); RBC Distribution Width CV 12.6 % (11.6-14.6); Red Blood Count 4.54 M/mm3 (4.2-5.4); White Blood Count 5.6 K/mm3 (4.4-11.0)
[2023-11-28 17:49] LABS: Erythrocyte Sedimentation Rate 3 mm/hr (0-30)
[2023-11-28 18:00] LABS: ALB/GLOB Ratio 1.1 RATIO (0.9-2.4); AST(SGOT) 23 U/L (15-37); Alanine Aminotransfer ALT/SGPT 25 U/L (13-56); Albumin, Serum 4.1 g/dL (3.2-5.0); Alkaline Phosphatase 80 U/L (45-117); Anion Gap 4 (5-15); BUN 10 mg/dL (7-18); BUN/Creat Ratio 14.6 RATIO (10-20); Calcium,Total 9.4 mg/dL (8.5-10.1); Chloride 104 mmol/L (98-107); Creatinine, Serum 0.69 mg/dL (0.55-1.02); EST Glomerular Filtration Rate 95 mL/min (>60); Est Glom Filt Rate - Afr Amer 114 mL/min (>60); Globulin 3.7 g/dL (2.2-4.2); Glucose 86 mg/dL (74-106); Protein, Total 7.8 g/dL (6.4-8.2); Sodium Level 137 mmol/L (136-145); Thyroid Stim Hormone (TSH) 1.05 uIU/mL (0.358-3.74)
== END | disposition home or self-care (01) ==
LOC: MFPLAB 16:16
PROVIDERS: PCP Family Medicine; Visit Provider Family Medicine
DX: R53.83 Other fatigue (principal)
CPT/HCPCS: 36415; 80053; 82306; 84443; 85025; 85652

== ENCOUNTER → 2023-12-07 | Outpatient (CLI) | payer OTHER, SELFPAY ==
[2023-12-07 18:08] LABS: Internal QC Validated? YES +Cl - CLEAR BKGD; Monotest Negative (Negative)
[2023-12-07 18:09] LABS: Record Kit Lot#, Mono 13231163
== END | disposition home or self-care (01) ==
LOC: MFPLAB 15:33
PROVIDERS: PCP Family Medicine; Visit Provider Family Medicine
DX: R53.83 Other fatigue (principal)
CPT/HCPCS: 36415; 86308

== ENCOUNTER → 2024-04-11 | Outpatient (CLI) | payer OTHER, SELFPAY ==
--- NOTE | 2024-04-11 15:39 | BD_ITS ---
STUDY: DUAL ENERGY X-RAY ABSORPTIOMETRY / DXA REASON FOR EXAM: Female, 53 years old. Weight loss -- WEIGHT LOSS TECHNIQUE: Bone Mineral Density (BMD) measurements of lumbar spine and bilateral hips were obtained. COMPARISON: None. FINDINGS: Lumbar Spine (L1-L4): g/cm2 (0.948) / T-score (-0.9) / Z-score (0.2) Findings are suggestive of normal bone density with a low fracture risk. Left Femur Total: g/cm2 (0.813) / T-score (-1.1) / Z-score (-0.4) Left Femoral Neck: g/cm2 (0.698) / T-score (-1.4) / Z-score (-0.3) Right Femur Total: g/cm2 (0.869) / T-score (-0.6) / Z-score (0.1) Right Femoral Neck: g/cm2 (0.751) / T-score (-0.9) / Z-score (0.2) BD/Dexa Bone Density Study IMPRESSION: The patient is considered osteopenic as outlined below according to [employer] Organization (WHO) criteria with a low fracture risk. Reference Information: The T-score is the number of standard deviations above or below the standard which is normal for young adults at their peak bone mineral density. The World Health Organization (WHO) interprets the T-scores as follows: Above -1 Normal bone density Between -1 and -2.5 Osteopenia Equal to / or below -2.5 Osteoporosis As a practical clinical guideline, osteopenia may be graded as follows: Mild -1 through -1.5 Moderate -1.6 through -2.0 Severe -2.1 through -2.4 The Z-score is the number of standard deviations above or below age-matched controls. A Z-score of less than -1.5 would be considered abnormal. References: 1. NIH Osteoporosis and Related Bone Diseases www osteo.org 2. International Society for Clinical Densitometry www iscd.org 3. National Osteoporosis Foundation www nof.org Electronically Signed: Odell Luz MD at 12:03 EDT ,
== END | disposition home or self-care (01) ==
LOC: OPBD 15:36
PROVIDERS: PCP Family Medicine; Referring Provider Internal Medicine Gastroenterology; Visit Provider Internal Medicine Gastroenterology
DX: R63.4 Abnormal weight loss (principal)
CPT/HCPCS: 77080

== ENCOUNTER → 2024-05-14 | Outpatient (CLI) | payer OTHER, SELFPAY ==
[2024-05-14 18:36] LABS: AST(SGOT) 15 U/L (15-37); Alanine Aminotransfer ALT/SGPT 19 U/L (13-56); Cholesterol 189 mg/dL (200); High Density Lipoprotein 57 mg/dL; Triglycerides 87 mg/dL; Very Low Density Lipoprotein 17 mg/dL (5-40)
== END | disposition home or self-care (01) ==
LOC: MFPLAB 15:58
PROVIDERS: PCP Family Medicine; Visit Provider Family Medicine
DX: E78.00 Pure hypercholesterolemia, unspecified (principal)
CPT/HCPCS: 36415; 80061; 84450; 84460

== ENCOUNTER → 2024-06-12 | Outpatient (CLI) | payer OTHER, SELFPAY ==
--- NOTE | 2024-06-12 15:28 | BI_ITS ---
MAMMOGRAPHY - BILATERAL SCREENING REASON FOR EXAM: Female, 53 years old. Routine annual screening examination. PERTINENT HISTORY: Non-contributory. TECHNIQUE: Digital bilateral breast sakina (3D mammographic acquisition) in the CC and MLO projections. 2-D mediolateral oblique (MLO) and craniocaudad (CC) views of both breasts were obtained. CAD: Full Field Digital Mammography with Computer Added Detection was performed. COMPARISON: Comparison is made with prior study May 16, 2023 and February 22, 2022. FINDINGS: Breast Composition: The breasts are heterogeneously dense, which may obscure small masses. There are no dominant masses or suspicious calcifications. Stable bilateral fat-containing axillary lymph nodes. No other significant abnormalities are identified. There has been no significant change since the prior study. BI/SCRN MAMM (CAD)W/SAKINA BILAT IMPRESSION: Stable bilateral screening mammogram. Yearly follow-up mammogram recommended. (A) ASSESSMENT CATEGORY: BIRADS Category 2: Benign. A letter regarding these results will be sent to the patient by the facility within 30 days. Approximately 10% of breast cancers are not detected by mammography. A normal mammogram should not delay biopsy of a clinically suspicious abnormality. [id number] Electronically Signed: Odell Luz MD at 9:02 EDT ,
== END | disposition home or self-care (01) ==
LOC: OPBI 15:28
PROVIDERS: PCP Family Medicine; Referring Provider Family Medicine; Visit Provider Family Medicine
DX: Z12.31 Encounter for screening mammogram for malignant neoplasm of breast (principal)
CPT/HCPCS: 77063; 77067

== ENCOUNTER → 2025-01-24 | Outpatient (CLI) | payer OTHER, SELFPAY ==
[2025-01-29 14:08] LABS: Vitamin D 1,25-Dihydroxy 42.4 pg/mL (24.8-81.5)
== END | disposition home or self-care (01) ==
LOC: LAB 13:05
PROVIDERS: Referring Provider Internal Medicine Gastroenterology; Visit Provider Internal Medicine Gastroenterology
DX: M85.80 Other specified disorders of bone density and structure, unspecified site (principal)
CPT/HCPCS: 36415; 82652

== ENCOUNTER → 2025-02-22 | Outpatient (CLI) | payer OTHER, SELFPAY ==
--- NOTE | 2025-02-22 12:24 | US_ITS ---
PROCEDURE: EXT NON VASC LIMITED/SOFT TISS 02/22/2025 REASON FOR EXAM: LUMP IN ARMPIT One-month history of right axillary lump. TECHNIQUE: EXT NON VASC LIMITED/SOFT TISS COMPARISON: None FINDINGS: Incidental note is made of 2, benign-appearing lymph nodes. The larger lymph node measures 2.4 cm x 1.4 cm x 0.8 cm. No discrete abnormality seen corresponding to the palpable abnormality. US/Ext Non Vasc Limited/Soft Tiss IMPRESSION: Incidental note is made of 2, adjacent benign-appearing lymph nodes. Reading Location: [facility]
--- NOTE | 2025-02-22 12:25 | US_ITS ---
PROCEDURE: EXT NON VASC LIMITED/SOFT TISS 02/22/2025 REASON FOR EXAM: LUMP IN GROIN TECHNIQUE: EXT NON VASC LIMITED/SOFT TISS COMPARISON: Normal FINDINGS: Findings suggestive of a hernia in the right groin corresponding to the palpable lump. The neck of the hernia measures 0.5 cm. Incidental note is made of small benign-appearing inguinal lymph nodes. US/Ext Non Vasc Limited/Soft Tiss IMPRESSION: The palpable lump corresponds to a hernia with the defect measuring 0.5 cm. Benign-appearing lymph nodes. Reading Location: [place] [id number]
== END | disposition home or self-care (01) ==
LOC: US 12:20
PROVIDERS: Referring Provider Family Medicine; Visit Provider Family Medicine
DX: R19.09 Other intra-abdominal and pelvic swelling, mass and lump (principal); R22.30 Localized swelling, mass and lump, unspecified upper limb
CPT/HCPCS: 76882

== ENCOUNTER 2025-04-18 10:09 | Day surgery (SDC) | payer OTHER, SELFPAY ==
--- NOTE | 2025-04-11 13:44 | EKG12_ITS ---
Test Reason : PRE OP Blood Pressure : */* mmHG Vent. Rate : 75 BPM Atrial Rate : 75 BPM P-R Int : 152 ms QRS Dur : 58 ms QT Int : 354 ms P-R-T Axes : -19 28 72 degrees QTcB Int : 395 ms Normal sinus rhythm Nonspecific ST and T wave abnormality Abnormal ECG Confirmed by KEAGAN BALLESTEROS, AMY ([id number]), non linear editor RUY NORIEGA ([id number]) on 04/12/2025 5:54:59 AM Referred By: Aj Acevedo Confirmed By: AMY BOOGIE MD
--- NOTE | 2025-04-17 12:26 | PAT.ANESEVAL ---
Pre-Assessment Diagnosis/Proposed Procedure Planned Operative Procedure(s): (R) Lap Robotic Inguinal Hernia w/mesh Anesthesia History Anesthesia History - code enforcement officer: Anesthesia History - code enforcement officer Hx Hospitalization No 04/04/25 16:08 Any Problems With Anesthesia Yes: PONV 04/04/25 16:08 Cholinesterase deficiency No 04/04/25 16:08 You/Your Family Experience No 04/04/25 16:08 fever (hyperthermia) with Relationship Recent Exposure to Contagious No 02/03/23 09:15 Disease Does patient have nerve No 04/04/25 16:08 stimulator Patient instructed to have device shut off --Does patient have Pacemaker or ICD? When Was Last Pacemaker Check QUESTION #4 FULL TEXT: You/Your Family Experience fever (hyperthermia) with Anesthesia Last Oral Intake Last Oral intake: Last Oral Intake NPO since Meds taken in AM with sips of water? Meds patient instructed to take am of surgery PONV PONV - code enforcement officer: PONV - code enforcement officer Female Yes 04/04/25 16:08 HX of Motion Sickness No 04/04/25 16:08 HX of N/V After Surgery Yes 04/04/25 16:08 Non-Smoker Yes 04/04/25 16:08 Duration of Surgery greater Yes 04/04/25 16:08 than 60 minutes Number of Risk Factors 4 04/04/25 16:08 PONV Score Severe Risk 04/04/25 16:08 Height & Weight Height & Weight: Anesthesia: Height & Weight Height 5 ft 03/19/25 13:45 Respiratory Assessment Respiratory Assessment - code enforcement officer: Respiratory Tract Infection Hx - code enforcement officer Hx Respiratory Tract Infection No 04/04/25 16:08 STOP Sleep Apnea STOP Sleep Apnea - code enforcement officer: STOP Sleep Apnea - code enforcement officer Hx Hypertension No 04/04/25 16:08 Hx Sleep Apnea No 04/04/25 16:08 CPAP BIPAP Do you snore loudly (louder No 04/04/25 16:08 than talking or can be heard Do you often feel tired/ No 04/04/25 16:08 fatigued/ sleepy during daytime? Has anyone observed you stop No 04/04/25 16:08 breathing during sleep? STOP Results Negative 04/04/25 16:08 QUESTION #5 FULL TEXT : Do you snore loudly (louder than talking or can be heard through closed doors)? 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 Specify any problems Hx of Preganancy in last 3 N/A 04/04/25 16:08 Months Nurse Filling Out Transfusion NBUCHER 04/04/25 16:08 & Questions: Date: 04/04/25 04/04/25 16:08 Time: 16:08 04/04/25 16:08 Patient unable to answer at this time (ie. confused, unrespo /Reproduction History /Reproductive History - code enforcement officer: /Reproductive Hx- code enforcement officer Hx Now No 04/04/25 16:08 Gestational Age (in weeks): EDC: Hx Hx Para Hx Section SAB No 04/04/25 16:08 Active Medications Active Medications: Current Medications Generic Name Dose Route Start Last Admin Trade Name Freq PRN Reason Stop Dose Admin Clindamycin Phosphate 900 mg in 50 mls @ 75 mls/hr 04/18/25 11:45 Cleocin IV 04/18/25 12:24 INTRAOP ONE [facility] Medical History Wears glasses Non-smoker Ganglion of flexor tendon sheath of right middle finger Alcohol use Arthritis High cholesterol Heartburn Gastroparesis Migraine GERD (gastroesophageal reflux disease) RLQ abdominal pain Nausea Abdominal pain Home Medications ?Medication ?Instructions ?Recorded ?Last Taken ?Type atorvastatin 40 mg tablet 40 mg PO DAILY 04/02/22 Unknown History pantoprazole 40 mg tablet,delayed 40 mg PO QAM #90 tabs 08/02/22 Unknown Rx release metoclopramide HCl 5 mg tablet 5 mg PO QAC #90 TABLETS 11/29/24 Unknown Rx sennosides 8.6 mg capsule (senna) 8.6 mg PO QDAY 02/08/25 Unknown History calcium polycarbophil 625 mg 625 mg PO QDAY PRN constipation 03/19/25 Unknown History tablet (Fiber-Lax) calcium 500 mg tablet 500 mg PO QODAY 04/04/25 Unknown History cholecalciferol (vitamin D3) 125 125 mcg PO QODAY 04/04/25 Unknown History mcg (5,000 unit) tablet (Vitamin D3) Allergy/AdvReac Type Severity Reaction Status Date / Time amoxicillin Allergy Intermediate unk Verified 04/04/25 16:05 Penicillins Allergy Intermediate unk Verified 04/04/25 16:05 Family History Mother Arthritis IBS (irritable bowel syndrome) Father Diabetes Hypertension High cholesterol Surgical History (Updated 04/04/25 @ 16:16 by Enedina Walker) History of rectal surgery History of bladder surgery History of colonoscopy History of esophagogastroduodenoscopy (EGD) Hx of tubal ligation Hx of hysterectomy Hx of shoulder surgery Hx of hernia repair History of carpal tunnel release of both wrists Social History Smoking Status: Never smoker Audit: Pertinent Findings Pertinent Findings EKG Perinent findings: EKG 04/11/2025. Normal sinus rhythm. Recommendation Anesthesia Recommendation Anesthesia recommendation: OPTIMIZED for anesthesia
[2025-04-18] VITALS (14 sets, daily range): BP systolic 100–116; BP diastolic 71–75; PULSE 61–70; RESP 16; TEMP 36.1–36.9; O2SAT 89–100; BMI 24.4
--- NOTE | 2025-04-18 10:41 | PCM.HP.BLA ---
History and Physical Date of Admission: 04/18/25 Intake Vital Signs 02/21/2315:23 03/19/2513:45 Height 4 ft 9 in 5 ft Weight: 126 lb BMI 24.6 BP 103/68 Blood Pressure Location Rt brachial Position Sitting Respiration 17 Pulse 91 Pulse Source Monitor Pulse Oximetry (%) 99 Oxygen Delivery Method room air Intake Visit Reasons: INGUINAL HERNIA Chief Complaint: inguinal hernia Is patient in pain?: No Allergies amoxicillin Allergy (Intermediate, Verified 03/19/25 13:46) unkPenicillins Allergy (Intermediate, Verified 03/19/25 13:46) unk Medications ?Medication ?Instructions ?Recorded ?Confirmed ?Type atorvastatin 40 mg tablet 40 mg PO DAILY 04/02/22 03/19/25 History pantoprazole 40 mg tablet,delayed 40 mg PO QAM #90 tabs 08/02/22 03/19/25 Rx release metoclopramide HCl 5 mg tablet 5 mg PO QAC #90 TABLETS 11/29/24 03/19/25 Rx Vitamin D PO 02/08/25 03/19/25 History calcium PO 02/08/25 03/19/25 History sennosides 8.6 mg capsule (senna) 8.6 mg PO QDAY 02/08/25 03/19/25 History calcium polycarbophil 625 mg 625 mg PO QDAY 03/19/25 03/19/25 History tablet (Fiber-Lax) meloxicam 15 mg tablet 15 mg PO QDAY PRN 03/19/25 03/19/25 History PFSH Medical History (Reviewed 02/21/23 @ 15:38 by Lisha Rosales MEDICAL AUTHORIZATION SPECIALIST, MEDICAL AUTHORIZATION SPECIALIST-C) Abdominal pain Alcohol use Arthritis Ganglion of flexor tendon sheath of right middle finger Gastroparesis GERD (gastroesophageal reflux disease) Heartburn High cholesterol Migraine Nausea Non-smoker RLQ abdominal pain Wears glasses Surgical History History of esophagogastroduodenoscopy (EGD) Hx of tubal ligation Hx of hysterectomy Hx of shoulder surgery Hx of hernia repair History of carpal tunnel release of both wrists Family History Mother Arthritis IBS (irritable bowel syndrome)Father Diabetes Hypertension High cholesterol Social History Smoking Status: Never smoker HPI HPI HPI: Patient is a 54-year-old female here for right groin bulging. She says this happened a few months ago. She feels that when it bulges out it is painful. ROS General General: No weight change, appetite, fatigue, colon cancer, breast cancer or weakness HEENT HEENT: No difficulty swallowing, eye injury, eye surgery, swollen glands or hoarseness Endo Endocrine: No thyroid disease, diabetes mellitus, thyroid cancer, Hair loss, heat intolerance or cold intolerance Skin Skin: No rash or changing moles Musc Musculoskeletal: No back problems, arthritis, rheumatoid arthritis, gout or joint pain Cardio Cardiovascular: No murmur, pacemaker, heart disease, atrial fibrillation, high blood pressure, heart attack, heart stent, palpitations, shortness of breath with exertion or chest pain Psych Psychiatric: No depression, anxiety or hearing voices Resp Respiratory: No shortness of breath, No sleep apnea, No cough, No COPD, No asthma, No emphysema and No wheezing Gastro Gastrointestinal: No abdominal pain, No nausea or vomiting, No diarrhea, No constipation, No blood in stool, Yes acid reflux, No hemorrhoids, No ulcers, No gallbladder problem and No black,tarry stools Joshua Hematologic: No blood thinners, No blood disorders, No bleeding, No anemia and No blood clots Neuro Neurologic: No system reviewed and no additional complaints, except as documented, No as per HPI, No abnormal gait, No abnormal hearing, No abnormal movements, No abnormal speech, No behavioral changes, No burning sensations, No confusion, No convulsions, No disequilibrium, No dizziness, No localized weakness, No frequent falls, No headache(s), No lack of coordination, No loss of vision, No memory loss, No numbness, No other visual disturbances, No radicular pain, No restless legs, No sensory deficit, No syncope, No tingling, No tremor(s), No weakness and No other Exam Const General: cooperative Orientation: alert and oriented x3 HENMT Head: normal to inspection Neck Neck: normal visual inspection and full ROM Chest Chest palpation & inspection: normal inspection of the chest Resp Effort & Inspection: normal respiratory effort Auscultation: clear to auscultation bilaterally Cardio Rate: regular rate Rhythm: regular rhythm GI Inspection: non-distended Palpation: soft, hernia (Right) indirect inguinal on the right and nontender Skin General: no rashes or lesions noted Neuro General: patient alert and patient oriented x3 Extrem General: full ROM Psych Appearance: grossly normal Mental Status: mental status grossly normal Assessment and Plan Assessment and Plan (1) Inguinal hernia: Status: Acute Qualifiers: Obstruction and gangrene presence: without obstruction or gangrene Laterality: unilateral Recurrence: non-recurrent Qualified Code(s): K40.90 - Unilateral inguinal hernia, without obstruction or gangrene, not specified as recurrent Plan: Patient has a right inguinal hernia. I discussed robotic assisted laparoscopic right inguinal hernia repair with mesh. I discussed the procedure in detail with her as well as the risks including but not limited to bleeding, infection, injury to surrounding organs such as the bladder, bowel, nerves. Patient understands the risks and is willing to proceed. Aj Acevedo MD Pager: [facility] [address] [place] [address], [address] [place] [address] Office: I have examined the patient and the H&P has been reviewed. There are no clinical changes since date of exam.
[2025-04-18] MEDS: Lactated Ringers 1,000 ML 15 ML IV (10:43)
--- NOTE | 2025-04-18 10:48 | PRE.ANES_ITS ---
ASA Classification* ASA Classification ASA Classification: 2 Assessment & Plan Anesthesia* Anesthesia Assessment Anesthesia Assessment: Discussed sedation and/or anesthesia options, risks, benefits, and alternatives with patient/parents/legal guardian/POA. Questions invited. The patient/parents/legal guardian/POA seems to understand and agrees to proceed with anesthesia plan. Reviewed the physical assessment, medical history, allergy history and patient home medications list prior to surgery/procedure/anesthetic and documented any changes. Performed airway and anesthesia risk assessments. Anesthesia Type Anesthesia Type: General History Source History Obtained from:: Patient and Chart Anesthesia Focused Assessment* Temperature: 98.4 F Pulse Rate: 65 Blood Pressure: 113/73 Respiratory Rate: 16 Pulse Ox: 100 Oxygen Delivery Method: Room Air Airway Assessment Mouth opens: >3 cm Mallampati Score: I Teeth Condition: Intact Neck Range of motion (ROM): Full ROM Labs Anesthesia Preop lab: CBC WBC 5.6 K/mm3 (4.4-11.0) 11/28/23 16:17 11/28/23 RBC 4.54 M/mm3 (4.2-5.4) 11/28/23 16:17 11/28/23 Hgb 13.4 g/dL (12.0-15.0) 11/28/23 16:17 11/28/23 Hct 41.3 % (37-47) 11/28/23 16:17 11/28/23 Plt Count 392 K/mm3 (150-450) 11/28/23 16:17 11/28/23 CHEMISTRY Potassium 4.0 mmol/L (3.5-5.1) 11/28/23 16:17 11/28/23 Sodium 137 mmol/L (136-145) 11/28/23 16:17 11/28/23 Magnesium 2.4 mg/dL (1.6-2.6) 04/26/23 16:49 04/26/23 BUN 10 mg/dL (7-18) 11/28/23 16:17 11/28/23 Creatinine 0.69 mg/dL (0.55-1.02) 11/28/23 16:17 11/28/23 Glucose 86 mg/dL (74-106) 11/28/23 16:17 11/28/23 TSH 1.05 uIU/mL (0.358-3.74) 11/28/23 16:17 COAG Pre-Assessment Diagnosis/Proposed Procedure Planned Operative Procedure(s): (R) Lap Robotic Inguinal Hernia w/mesh Anesthesia History Anesthesia History - production quality analyst: Anesthesia History - production quality analyst Hx Hospitalization No 04/04/25 16:08 Any Problems With Anesthesia Yes: PONV . Slow to wake up 04/04/25 16:08 Cholinesterase deficiency No 04/04/25 16:08 You/Your Family Experience No 04/04/25 16:08 fever (hyperthermia) with Relationship Recent Exposure to Contagious No 04/18/25 10:40 Disease Does patient have nerve No 04/04/25 16:08 stimulator Patient instructed to have device shut off --Does patient have Pacemaker No 04/18/25 10:40 or ICD? When Was Last Pacemaker Check QUESTION #4 FULL TEXT: You/Your Family Experience fever (hyperthermia) with Anesthesia Last Oral Intake Last Oral intake: Last Oral Intake NPO since 09:00 04/18/25 10:40 Meds taken in AM with sips of Yes 04/18/25 10:40 water? Meds patient instructed to SEE MED REC 04/18/25 10:40 take am of surgery Any additional information?: Yes NPO since: 09:00 (Patient took her Protonix this morning at 9 AM.) Meds taken in AM with sips of water?: Yes Meds patient instructed to take am of surgery: Pantoprazole PONV PONV - production quality analyst: PONV - production quality analyst Female Yes 04/04/25 16:08 HX of Motion Sickness No 04/04/25 16:08 HX of N/V After Surgery Yes 04/04/25 16:08 Non-Smoker Yes 04/04/25 16:08 Duration of Surgery greater Yes 04/04/25 16:08 than 60 minutes Number of Risk Factors 4 04/04/25 16:08 PONV Score Severe Risk 04/04/25 16:08 Height & Weight Height & Weight: Anesthesia: Height & Weight Height 5 ft 04/18/25 10:40 Weight: 56.8 kg 04/18/25 10:40 Body Mass Index (BMI) 24.4 04/18/25 10:40 Respiratory Assessment Respiratory Assessment - production quality analyst: Respiratory Tract Infection Hx - production quality analyst Hx Respiratory Tract Infection No 04/04/25 16:08 STOP Sleep Apnea STOP Sleep Apnea - production quality analyst: STOP Sleep Apnea - production quality analyst Hx Hypertension No 04/04/25 16:08 Hx Sleep Apnea No 04/04/25 16:08 CPAP BIPAP Do you snore loudly (louder No 04/04/25 16:08 than talking or can be heard Do you often feel tired/ No 04/04/25 16:08 fatigued/ sleepy during daytime? Has anyone observed you stop No 04/04/25 16:08 breathing during sleep? STOP Results Negative 04/04/25 16:08 QUESTION #5 FULL TEXT : Do you snore loudly (louder than talking or can be heard through closed doors)? 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 Specify any problems Hx of Preganancy in last 3 N/A 04/04/25 16:08 Months Nurse Filling Out Transfusion NBUCHER 04/04/25 16:08 & Questions: Date: 04/04/25 04/04/25 16:08 Time: 16:08 04/04/25 16:08 Patient unable to answer at this time (ie. confused, unrespo /Reproduction History /Reproductive History - production quality analyst: /Reproductive Hx- production quality analyst Hx Now No 04/04/25 16:08 Gestational Age (in weeks): EDC: Hx Hx Para Hx Section SAB No 04/04/25 16:08 Active Medications Active Medications: Current Medications Generic Name Dose Route Start Last Admin Trade Name Freq PRN Reason Stop Dose Admin Clindamycin Phosphate 900 mg in 50 mls @ 75 mls/hr 04/18/25 11:45 Cleocin IV 04/18/25 12:24 INTRAOP ONE Lactated Ringer's 1,000 mls @ 15 mls/hr 04/18/25 10:30 04/18/25 10:43 IV 15 mls/hr .Q48H DOMITILA Administration PFSH Medical History Wears glasses Non-smoker Ganglion of flexor tendon sheath of right middle finger Alcohol use Arthritis High cholesterol Heartburn Gastroparesis Migraine GERD (gastroesophageal reflux disease) RLQ abdominal pain Nausea Abdominal pain Home Medications ?Medication ?Instructions ?Recorded ?Last Taken ?Type atorvastatin 40 mg tablet 40 mg PO DAILY 04/02/22 Unkn own History pantoprazole 40 mg tablet,delayed 40 mg PO QAM #90 tab s 08/02/22 04/18/25 09:00 Rx release metoclopramide HCl 5 mg tablet 5 mg PO QAC #90 TABLETS 11/29/24 Unknown Rx sennosides 8.6 mg capsule (senna) 8.6 mg PO QDAY 02/08 Unknown History calcium polycarbophil 625 mg 625 mg PO QDAY PRN consti pation 03/19/25 Unknown History tablet (Fiber-Lax) calcium 500 mg tablet 500 mg PO QODAY 04/04/25 Unk nown History cholecalciferol (vitamin D3) 125 125 mcg PO QODAY 03/07 09/29 Unknown History mcg (5,000 unit) tablet (Vitamin D3) Allergy/AdvReac Type Severity Reaction Status Date / Time amoxicillin Allergy Intermediate unk Verified 04/18/25 10:38 Penicillins Allergy Intermediate unk Verified 04/18/25 10:38 Family History Mother Arthritis IBS (irritable bowel syndrome) Father Diabetes Hypertension High cholesterol Surgical History History of rectal surgery History of bladder surgery History of colonoscopy History of esophagogastroduodenoscopy (EGD) Hx of tubal ligation Hx of hysterectomy Hx of shoulder surgery Hx of hernia repair History of carpal tunnel release of both wrists Social History Smoking Status: Never smoker Review of Systems (Anesthesia) ROS Narrative System reviewed and no additional complaints, except as documented.
[2025-04-18] MEDS: Midazolam 2 MG/2 ML Syringe IV (11:29)
[2025-04-18] MEDS: Lidocaine 1% (5 ml sdv) 5 ML Vial IV (11:33)
[2025-04-18] MEDS: fentaNYL 100 MCG/2 ML Ampul IV (11:33)
--- NOTE | 2025-04-18 12:23 | PCM.OPRPT ---
Operative Report (Standard) Operative Information Date of Procedure: 04/18/25 Pre-Operative Diagnosis: Right inguinal hernia Post-Operative Diagnosis: Right inguinal hernia Surgery/Procedure Performed: Robotic assisted laparoscopic right hernia repair with mesh shipping manager: Yes Production Generalist: Marietta Castaneda Tasks completed by assistant athletic trainer: Opening & closing Type of Anesthesia: General/Regional RN Documented Start/Stop Times: Operation Date: 04/18/25 11:45 Case Time Into Pre-Op 04/18/25 10:17 Out of Pre-Op 04/18/25 11:22 Anesthesia Start 04/18/25 11:26 Into Room 04/18/25 11:26 Procedure Start 04/18/25 11:45 Procedure Start Time: 11:45 Procedure Stop Time: 12:35 Select all DRAINS/GRAFTS/IMPLANTS that apply: Implanted device Implanted device details: ProGrip mesh in the right groin Estimated Blood Loss: 5 Specimen collected: No Description of surgery: Patient is Roback to the operating room and general anesthesia was induced. The abdomen was prepped and draped in the usual sterile fashion. An incision was made superior to the umbilicus and the fascia was elevated and a Veress needle was placed into the abdomen. The abdomen was insufflated to 15 mmHg and the Veress needle was removed. Next the port was placed into the abdomen and it was inspected for injuries from entry and there were none. Patient was placed in steep Trendelenburg. Under direct visualization an 8 mm port was placed in the right lateral sidewall as well as the left lateral sidewall and then the robot was docked. Using electrocautery scissors an incision was made in the peritoneum in the right lower quadrant. Dissection was carried inferiorly until the hernia sac was fully reduced. The round ligament was divided. Next a piece of ProGrip mesh was unfolded over the hernia defect completely covering it with good overlap. Next the peritoneum was reapproximated using a running 3 oh V-Loc suture completely covering the mesh. The robot was undocked and the ports were removed and the abdomen was allowed to desufflate. The incisions were injected with local anesthetic and closed with interrupted 3-0 Vicryl sutures. Steri-Strips and bandages were applied. Patient was taken to PACU in stable condition. Surgical Findings: None Complications Complications: No Admit VTE Documentation VTE Mechan Device Prophylaxis: SCD's
--- NOTE | 2025-04-18 12:26 | EX.PCM.DISCH ---
Discharge Instructions Procedure Hernia Diet Discharge Diet: Light diet - advance as tolerated Activity Discharge Activity: May Not Drive (for 2-3 days or while taking narcotic pain meds.) and May Shower (with the bandage in place 1-2 days after surgery.) Lifting Restrictions: 20 pounds for 4 weeks. Additional Activity Instructions:: Climbing stairs is fine, walking is encouraged. Sitting in bed may be uncomfortable. Sitting up using your lateral muscles (sitting up sideways) is usually more comfortable. Do not drive, work heavy equipment of sign legal documents for 24 hours. Pain medications may cause nausea, you should typically eat light foods as you take your pain medications. Pain medications may also cause constipation. If you have difficulty with this, discuss with your doctor. Alternate ibuprofen and Tylenol for pain control, oxycodone for breakthrough pain Dressing / Incision Call your doctor if your incision/area has: Continuous Slow Oozing, Sudden Increased Bleeding, Increased Pain/ Swelling, Increased Redness and Foul Smelling Discharge Call your doctor if you observe: Fever of 101 or Higher Suture Line Care: Avoid Pulling/Pushing and Avoid Pinching/Bending Remove Dressing in: 2 days (Remove clear bandages in 2 days, remove Steri-Strips in 7 to 10 days.) Follow Up Care Please Follow Up With: Aj Acevedo MD When: Please call to schedule 2 week follow up appointment. [phone] Test Results: Test results from this visit will be discussed in further detail at your follow-up appointment, if applicable. Discharge Plan Admission Attending Provider: Aj Acevedo Primary Care Provider: Cynthia Cornell Instructions Print Language: Persian Discharge Orders/Prescriptions Prescriptions: New oxycodone 5 mg Tablet 5 - 10 mg PO Q4H PRN PRN (Reason: Pain Score 4-10) 5 Days Qty: 10 0RF No Action atorvastatin 40 mg tablet 40 mg PO DAILY senna 8.6 mg capsule 8.6 mg PO QDAY calcium polycarbophil [Fiber-Lax] 625 mg tablet 625 mg PO QDAY PRN (Reason: constipation) calcium 500 mg tablet 500 mg PO QODAY cholecalciferol (vitamin D3) [Vitamin D3] 125 mcg (5,000 unit) tablet 125 mcg PO QODAY pantoprazole 40 mg tablet,delayed release (DR/EC) 40 mg PO QAM Qty: 90 3RF metoclopramide HCl 5 mg tablet 5 mg PO QAC Qty: 90 2RF Other Ambulatory Orders: 12 Lead EKG (Routine) Timeframe: 20250411 Facility: [facility] - Location: Cardiovascular Services Ordered By: Dr. Indra Strickland Referrals / Follow Up: Cynthia Cornell MD [Primary Care Provider] - Disposition Disposition (needs filled in before D/C Order can be placed): Home, Self Care
--- NOTE | 2025-04-18 13:35 | PCM.POST.ANE ---
Anesthesia: Postop Eval I Current Vital Signs Temperature: 97 F Pulse Rate: 61 Blood Pressure: 114/73 Respiratory Rate: 16 Pulse Ox: 98 Oxygen Delivery Method: Room Air Assessment Airway patent: Yes Spontaneous unlabored respirations: Yes Mental status: Awake and Calm nausea: No Vomiting: No Anesthesia Complication: No Fluid Hydration Crystalloid volume administer (ml): 1,200 Total IV fluid infused: 1,200 Progress Note Anesthesia document: Postop Eval 1 completed: Yes
--- NOTE | 2025-04-18 19:39 | POSTOPAN2_ITS ---
Anesthesia Postop Eval I Sum Postop Eval Completion status Anesthesia document: Postop Eval 1 completed: Yes Anesthesia Postop Eval I Summary Anesthesia Postop Eval I Summary: Anesthesia Postop Eval I: Assessment Summary Airway patent Yes 04/18/25 13:44 MANUFACTURING [email or web address] Spontaneous unlabored Yes 04/18/25 13:44 MANUFACTURING [email or web address] respirations Mental status Awake,Calm 04/18/25 13:44 MANUFACTURING [email or web address] nausea No 04/18/25 13:44 MANUFACTURING [email or web address] Vomiting No 04/18/25 13:44 MANUFACTURING [email or web address] Anesthesia Postop Eval I: Fluid Summary Crystalloid volume administer 1,200 04/18/25 13:44 MANUFACTURING [email or web address] (ml) Colloids volume administered ( ml) Blood Product volume administered (ml) Total IV fluid infused 1,200 04/18/25 13:44 MANUFACTURING [email or web address] Anesthesia Postop Eval I: Summary Notes Anesthesia Complication No 04/18/25 13:44 MANUFACTURING [email or web address] Anesthesia Complication Comment: Post-operative progress note Anesthesia: Postop Eval II Evaluation Mental status: Awake and Calm Pain Level: 1 nausea: No Vomiting: No Complications Anesthesia Complication: No
--- NOTE | 2025-04-18 19:39 | PCM.POSTANE2 ---
Anesthesia Postop Eval I Sum Postop Eval Completion status Anesthesia document: Postop Eval 1 completed: Yes Anesthesia Postop Eval I Summary Anesthesia Postop Eval I Summary: Anesthesia Postop Eval I: Assessment Summary Airway patent Yes 04/18/25 13:44 SECURITY SUPPORT [email or web address] Spontaneous unlabored Yes 04/18/25 13:44 SECURITY SUPPORT [email or web address] respirations Mental status Awake,Calm 04/18/25 13:44 SECURITY SUPPORT [email or web address] nausea No 04/18/25 13:44 SECURITY SUPPORT [email or web address] Vomiting No 04/18/25 13:44 SECURITY SUPPORT [email or web address] Anesthesia Postop Eval I: Fluid Summary Crystalloid volume administer 1,200 04/18/25 13:44 SECURITY SUPPORT [email or web address] (ml) Colloids volume administered ( ml) Blood Product volume administered (ml) Total IV fluid infused 1,200 04/18/25 13:44 SECURITY SUPPORT [email or web address] Anesthesia Postop Eval I: Summary Notes Anesthesia Complication No 04/18/25 13:44 SECURITY SUPPORT [email or web address] Anesthesia Complication Comment: Post-operative progress note Anesthesia: Postop Eval II Evaluation Mental status: Awake and Calm Pain Level: 1 nausea: No Vomiting: No Complications Anesthesia Complication: No
== END 2025-04-18 15:38 | disposition home or self-care (01) ==
LOC: SDC 10:11 → AC 10:13
PROVIDERS: PCP Family Medicine; Referring Provider Surgery; Visit Provider Surgery
PROC: (CPT 49650; principal; 2025-04-18 11:25)
DX: K40.40 Unilateral inguinal hernia, with gangrene, not specified as recurrent (principal); K21.9 Gastro-esophageal reflux disease without esophagitis; E78.00 Pure hypercholesterolemia, unspecified; Z79.899 Other long term (current) drug therapy
CPT/HCPCS: 49650; 00840; 93005; C1781; J2405

== ENCOUNTER → 2025-06-13 | Outpatient (CLI) | payer OTHER, SELFPAY ==
--- NOTE | 2025-06-13 16:13 | BI_ITS ---
EXAM: SCRN MAMM (CAD)W/SAKINA BILAT DATE: 06/13/2025 CLINICAL HISTORY: F, Age 54 y/o , SCREENING TECHNIQUE: Procedure Code: [id number] Modality: MG Procedure: SCRN MAMM (CAD)W/SAKINA BILAT COMPARISON: Prior exam(s) dated 06/12/2024, 05/16/2023, 02/22/2022. FINDINGS: TISSUE DENSITY: The breasts are heterogeneously dense, which may obscure small masses. The mammogram demonstrates that the patient has dense breasts. Supplemental screening with whole breast ultrasound or MRI may be considered for further evaluation. Bilateral Breast Mammographic Findings: No significant masses, calcifications or other abnormalities are identified. BI/SCRN MAMM (CAD)W/SAKINA BILAT IMPRESSION: There is no mammographic evidence of malignancy. OVERALL FINAL ASSESSMENT BI-RADS 1: NEGATIVE. RECOMMENDATION: Routine annual follow-up in 1 Year Additional Recommendation none A letter with findings and recommendations will be mailed to the patient. Reading Location: [id number]
== END | disposition home or self-care (01) ==
LOC: OPBI 16:11
PROVIDERS: PCP Family Medicine; Referring Provider Nurse Practitioner Family; Visit Provider Nurse Practitioner Family
DX: Z12.31 Encounter for screening mammogram for malignant neoplasm of breast (principal)
CPT/HCPCS: 77063; 77067